=== PATIENT | female | born 1990 | race African-American/Black ===

== ENCOUNTER 2017-01-27 16:57 | Emergency (ER) | payer OTHER ==
--- NOTE | 2017-01-27 17:23 | UC ---
Psychiatric Complaint HPI - HPI Summary HPI Summary: PT RECEIVED SOME "BAD NEWS FROM [place]" TODAY. TOOK 3 TABS OF 25MG HYDROXYZINE AT 1PM THEN AGAIN AT 3PM. WAS HAVING THOUGHTS OF SELF HARM WHILE SHE WAS TAKING THE PILLS. HAS H/O DEPRESSION/ANXIETY AND SUICIDE ATTEMPTS IN THE PAST. HER RX FOR HYDROXYZINE IS 25MG 1-2 TABS NIGHTLY NEEDED. - History Of Current Complaint Chief Complaint: [facility] Stated Complaint: MEDICATION OVERDOSE Time Seen by Provider: 01/27/17 17:17 Hx Obtained From: Patient, Family/Mental Health Program Specialist - boyfriend Hx Last Menstrual Period: 01/20/17 Severity Initially: Moderate Severity Currently: Moderate Character: Depressed Aggravating Factor(s): Recent Stress - "BAD NEWS FROM [place] TODAY" Related History: Positive For: Prior Psychiatric Issues Has Suicidal: Thoughts, Demonstrates Gesture, Has Prior Attempt(s) Ingestion History: Type/Name Of Drug - HYDROXYZINE, Amount Ingested - 75MG, Approximate Time Of Ingestion - 1300 AND 1500 - Allergies/Home Medications Allergies/Adverse Reactions: Allergies Allergy/AdvReac Type Severity Reaction Status Date / Time Acetaminophen AdvReac Mild GI Upset Verified 01/27/17 17:08 Ibuprofen AdvReac Mild GI Upset Verified 01/27/17 17:08 Home Medications: Home Medications hydrOXYzine PAMOATE CAP* [Vistaril CAP*] 25 mg PO BEDTIME PRN 01/27/17 [History Confirmed 01/27/17] PMH/Surg Hx/FS Hx/Imm Hx Endocrine History Of: Denies: Diabetes, Thyroid Disease Cardiovascular History Of: Denies: Cardiac Disorders, Hypertension Respiratory History Of: Denies: COPD, Asthma GI/ History Of: Denies: Ulcer Psychological History Of: Reports: Anxiety, Depression - Surgical History Surgical History: Yes Surgery Procedure, Year, and Place: wisdom teeth extraction, 2008 - Family History Known Family History: Positive: Hypertension - Social History Alcohol Use: Occasionally Substance Use Type: None Smoking Status (MU): Never Smoked Tobacco - Immunization History Most Recent Influenza Vaccination: last season Most Recent Tetanus Shot: as a child Most Recent Pneumonia Vaccination: none Review of Systems Constitutional: Negative Respiratory: Negative Cardiovascular: Negative Gastrointestinal: Negative Psychological: Depressed All Other Systems Reviewed And Are Negative: Yes Physical Exam Triage Information Reviewed: Yes Appearance: Well-Appearing, No Pain Distress, Well-Nourished Vital Signs: Initial Vital Signs Temp 98.3 F 01/27/17 17:03 Pulse 71 01/27/17 17:03 Resp 16 01/27/17 17:03 BP 123/88 01/27/17 17:03 Pulse Ox 98 01/27/17 17:03 Vital Signs Reviewed: Yes Eyes: Positive: Conjunctiva Clear ENT: Positive: Hearing grossly normal Neck: Positive: Supple Respiratory Exam: Normal Cardiovascular Exam: Normal Abdomen Description: Positive: Soft Musculoskeletal: Positive: No Edema Neurological: Positive: Alert Psychological: Positive: Age Appropriate Behavior, Other: - TEARFUL WHEN ADVISED OF HOSPITAL TRANSFER Skin: Negative: rashes Psych Complaint Course/Dx - Course Course Of Treatment: PT DID NOT ACTUALLY TAKE A CONCERNING AMOUNT OF HYDOXYZINE BUT ADMITTED TO THOUGHTS OF SELF HARM SO WILL SEND TO [facility] FOR FURTHER EVAL. - Differential Dx/Diagnosis Provider Diagnoses: ANXIETY, INAPPROPRIATE MEDICATION INGESTION WITH THOUGHTS OF SELF HARM - Physician Notifications Discussed Patient Care With: LAURA HINSON Time Discussed With Above Provider: 18:00 - TO [facility] BY AMBULANCE Discharge - Discharge Plan Condition: Stable Disposition: TRANS HIGHER LVL OF CARE FAC Referrals: No Primary Care Phys,NOPCP [Primary Care Provider] -
[2017-01-27 18:10] VITALS: BP 128/91
== END 2017-01-27 18:00 | disposition short-term general hospital (02) ==
LOC: UCEAST 16:57
DX: T43.592A Poisoning by other antipsychotics and neuroleptics, intentional self-harm, initial encounter (principal); F41.9 Anxiety disorder, unspecified; Y92.9 Unspecified place or not applicable; Z91.5 Personal history of self-harm; F32.9 Major depressive disorder, single episode, unspecified; Z88.6 Allergy status to analgesic agent
CPT/HCPCS: 99213; G0463

== ENCOUNTER 2017-01-27 18:21 | Emergency (ER) | payer OTHER ==
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
[2017-01-27 19:20] LABS: Urine Bacteria Absent (Absent); Urine Bilirubin Negative (Negative); Urine Glucose Negative (Negative); Urine Nitrite Negative (Negative)
[2017-01-27 19:28] LABS: Benzodiazepine Urine Screen None Detected (None Detect)
[2017-01-27 19:37] LABS: Hematocrit 38 % (35-47); Hemoglobin 12.2 g/dl (12.0-16.0); Mean Corpuscular HGB Conc 32 g/dl (31-36); Mean Corpuscular Hemoglobin 24 pg (27-31); Mean Corpuscular Volume 74 fL (80-97); Mean Platelet Volume 7 um3 (7.4-10.4); Red Blood Count 5.07 10^6/ul (4.0-5.4); Red Cell Distribution Width 15 % (10.5-15); White Blood Count 11.5 10^3/ul (3.5-10.8)
[2017-01-27 19:46] LABS: Add Diff/Slide Review? Slide Review Added; Comments Flag Yes
[2017-01-27 19:52] LABS: ALT 9 U/L (7-52); AST 16 U/L (13-39); Albumin 4.1 g/dL (3.2-5.2); Alkaline Phosphatase 75 U/L (34-104); Anion Gap 7 mmol/L (2-11); Blood Urea Nitrogen 8 mg/dL (6-24); CO2 Carbon Dioxide 28 mmol/L (22-32); Chloride 100 mmol/L (101-111); EGFR African American 112.4 (>60); EGFR Non-African American 87.4 (>60); Globulin 3.6 g/dL (2-4); Glucose 90 mg/dL (70-100); Potassium 3.9 mmol/L (3.5-5.0); Sodium 135 mmol/L (133-145); Total Protein 7.7 g/dL (6.4-8.9)
[2017-01-27 20:17] LABS: Acetaminophen < 15 mcg/mL; Alcohol < 10 mg/dL (<10); Salicylate < 2.50 mg/dL (<30)
[2017-01-27 20:27] LABS: TSH (Thyroid Stimulating Horm) 1.77 mcIU/mL (0.34-5.60)
[2017-01-27 22:01] VITALS: BP 130/73
== END 2017-01-27 22:06 | disposition home or self-care (01) ==
LOC: ED 18:21
DX: F34.9 Persistent mood [affective] disorder, unspecified (principal); F41.9 Anxiety disorder, unspecified; F32.9 Major depressive disorder, single episode, unspecified
CPT/HCPCS: 36415; 80053; 80307; 80320; 80329; 81003; 81015; 84443; 85025; 87086; 99282; G0480